=== PATIENT | female | born 1970 | race Caucasian/White ===

== ENCOUNTER 2017-03-08 20:18 | Emergency (ER) | payer OTHER ==
[2017-03-08 20:31] VITALS: TEMP 98; BMI 25.4
[2017-03-08] MEDS ORDERED: METHOCARBAMOL 500 MG TABLET PO ONE (20:50)
--- NOTE | 2017-03-08 20:50 | PDOC ---
History of Present Illness - General History Source: Patient Exam Limitations: No Limitations - History of Present Illness Initial Comments: The patient is a 46 yo F with a PMHx of uterine polyps, blockage of fallopian tubal who presents with L sided neck/facial/head pain that shes had for 3 days. She denies trauma to the area. The patient also denies fevers or recent travel. She denies sick contacts. The patient denies nausea, vomiting and diarrhea. 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 The pain has gotten so severe that its not affecting her teeth. The patient denies chest pain, palpitations and lightheadedness. PCP: Cruz <Cristy Rothman - Last Filed: 03/08/17 22:43> - General History Source: Patient <Jose A Wing - Last Filed: 03/09/17 19:28> - General Chief Complaint: Pain Stated Complaint: Headache Time Seen by Provider: 03/08/17 20:43 Past History <Cristy Rothman - Last Filed: 03/08/17 22:43> - Immunization History Immunization Up to Date: Yes - Psycho/Social/Smoking Cessation Hx Suicidal Ideation: No Smoking Status: No Smoking History: Never smoked Have you smoked in the past 12 months: No Number of Cigarettes Smoked Daily: 0 Hx Alcohol Use: No Drug/Substance Use Hx: No Substance Use Type: None <Jose A Wing - Last Filed: 03/09/17 19:28> - Past Medical History Allergies/Adverse Reactions: Allergies Allergy/AdvReac Type Severity Reaction Status Date / Time No Known Drug Allergies Allergy Verified 03/08/17 20:26 Home Medications: Ambulatory Orders Multivitamin [Poly-Vitamin] 1 each PO DAILY 11/03/15 Ibuprofen 600 mg PO TID #30 tablet 03/08/17 Ibuprofen 800 mg PO TID PRN 03/08/17 Methocarbamol [Robaxin -] 500 mg PO TID #30 tablet 03/08/17 Oxycodone HCl/Acetaminophen [Percocet 5-325 mg Tablet] 1 tab PO Q6H #20 tablet MDD 4 03/08/17 Review of Systems - Review of Systems Able to Perform ROS?: Yes Comments:: CONSTITUTIONAL: Absent: fever, chills, diaphoresis, generalized weakness, malaise, loss of appetite HEENT: +head pain, neck pain, face pain Absent: rhinorrhea, nasal congestion, throat pain, throat swelling, difficulty swallowing, mouth swelling, ear pain, eye pain, visual Changes CARDIOVASCULAR: Absent: chest pain, syncope, palpitations, irregular heart rate, lightheadedness , peripheral edema RESPIRATORY: Absent: cough, shortness of breath, dyspnea with exertion, orthopnea, wheezing, stridor, hemoptysis GASTROINTESTINAL: Absent: abdominal pain, abdominal distension, nausea, vomiting, diarrhea, constipation, melena, hematochezia GENITOURINARY: Absent: dysuria, frequency, urgency, hesitancy, hematuria, flank pain, genital pain MUSCULOSKELETAL: Absent: myalgia, arthralgia, joint swelling SKIN: Absent: rash, itching, pallor NEUROLOGIC: Absent: headache, focal weakness or paresthesias, dizziness, unsteady gait, seizure, mental status changes, bladder or bowel incontinence PSYCHIATRIC: Absent: anxiety, depression, suicidal or homicidal ideation, hallucinations. <Cristy Rothman - Last Filed: 03/08/17 22:43> *Physical Exam - Vital Signs Last Vital Signs Temp Pulse Resp BP Pulse Ox 98 F 84 16 140/82 99 03/08/17 20:30 03/08/17 20:30 03/08/17 20:30 03/08/17 20:30 03/08/17 20:30 - Physical Exam Comments: GENERAL: Well developed, well nourished. Awake and alert. No acute distress. HEENT: Normocephalic, atraumatic. PERRLA, EOMI. No conjunctival pallor. Sclera are non- icteric. Moist mucous membranes. Oropharynx is clear. NECK: Supple. Full ROM. No JVD. Carotid pulses 2+ and symmetric, without bruits. No thyromegaly. No lymphadenopathy. CARDIOVASCULAR: Regular rate and rhythm. No murmurs, rubs, or gallops. Distal pulses are 2+ and symmetric. PULMONARY: No evidence of respiratory distress. Lungs clear to auscultation bilaterally. No wheezing, rales or rhonchi. ABDOMINAL: Soft. Minimally tender in the L sided paraspinal muscles. Non-distended. No rebound or guarding. No organomegaly. Normoactive bowel sounds. MUSCULOSKELETAL Normal range of motion at all joints. No bony deformities or tenderness. No CVA tenderness. EXTREMITIES: No cyanosis. No clubbing. No edema. No calf tenderness. SKIN: Warm and dry. Normal capillary refill. No rashes. No jaundice. NEUROLOGICAL: Alert, awake, appropriate. Cranial nerves 2-12 intact. No deficits to light touch and temperature in face, upper extremities and lower extremities. No motor deficits in the in face, upper extremities and lower extremities. Normoreflexic in the upper and lower extremities. Normal speech. Toes are down-going bilaterally. Gait is normal without ataxia. PSYCHIATRIC: Cooperative. Good eye contact. Appropriate mood and affect. <Cristy Rothman - Last Filed: 03/08/17 22:43> - Vital Signs Last Vital Signs Temp Pulse Resp BP Pulse Ox 98 F 84 16 140/82 99 03/08/17 20:30 03/08/17 20:30 03/08/17 20:30 03/08/17 20:30 03/08/17 20:30 <Jose A Wing - Last Filed: 03/09/17 19:28> ED Treatment Course - RADIOLOGY Radiograph Interpretation: Head CT No intracranial hemorrhage is seen. The internal cerebral veins and vein of Paolo demonstrate an unusual hyperdense appearance without associated vessel expansion. This appearance could be on the basis of normal variation versus representing an early CT finding of venous thrombosis. There is no definite associated parenchymal edema. Additional evaluation utilizing multiplanar thin section CT (without and with intravenous C Spine CT IMPRESSION: No gross disc herniation is noted. MRI evaluation may be considered, nonemergent unless otherwise clinically indicated. - Medications Given in the ED: ED Medications Discontinued Medications Generic Name Dose Route Start Last Admin Trade Name Freq PRN Reason Stop Dose Admin Methocarbamol 500 mg 03/08/17 20:50 03/08/17 21:00 Robaxin - PO 03/08/17 20:51 500 mg ONCE ONE Administration <Cristy Rothman - Last Filed: 03/08/17 22:43> Medical Decision Making - Medical Decision Making 03/08/17 22:46 Dr. Wing: The scribe's documentation has been prepared under my direction and personally reviewed by me in its entirery. I confirm that the note above accurately reflects all work, treatment, procedures, and medical decision making performed by me. 03/09/17 19:28 all studies negative for acute pathology. Pt was discharged. <Jose A Wing - Last Filed: 03/09/17 19:28> *DC/Admit/Observation/Transfer - Attestations Scribe Attestion: Documentation prepared by Cristy Rothman, acting as medical billing service for Jose A Wing MD/DO. <Cristy Rothman - Last Filed: 03/08/17 22:43> - Discharge Dispostion Admit: No <Jose A Wing - Last Filed: 03/09/17 19:28> Diagnosis at time of Disposition: Cervical paraspinal muscle spasm - Discharge Dispostion Disposition: HOME Condition at time of disposition: Stable - Prescriptions Prescriptions: Ibuprofen 600 mg PO TID #30 tablet Oxycodone HCl/Acetaminophen [Percocet 5-325 mg Tablet] 1 tab PO Q6H #20 tablet MDD 4 Methocarbamol [Robaxin -] 500 mg PO TID #30 tablet - Referrals Referrals: Sherif Arroyo MD [Primary Care Provider] - - Patient Instructions Printed Discharge Instructions: DI for Cervical Muscle Strain Print Language: RWANDAN
[2017-03-08] MEDS ORDERED: METHOCARBAMOL 500 MG TABLET ONE (20:56)
[2017-03-08] MEDS ORDERED: OXYCODONE/APAP 5/325MG COMBO TABLET PO ONE (22:43)
[2017-03-08] MEDS ORDERED: OXYCODONE/APAP 5/325MG COMBO TABLET ONE (22:50)
[2017-03-08 22:53] VITALS: BP 138/80; PULSE 79
== END 2017-03-08 22:53 | disposition home or self-care (01) ==
LOC: JER 20:18
DX: M62.838 Other muscle spasm (principal)
CPT/HCPCS: 70450-TC; 72125-TC; 84703; 99282-25

== ENCOUNTER 2019-01-01 08:21 | Emergency (ER) | payer OTHER | END 2019-01-01 09:17 | disposition home or self-care (01) | LOC: JERFT 08:21 ==

== ENCOUNTER 2019-03-24 19:38 | Emergency (ER) | payer OTHER | END 2019-03-24 21:04 | disposition home or self-care (01) | LOC: JERFT 19:38 ==